=== PATIENT | female | born 1990 | race Two or more races ===

== ENCOUNTER 2024-05-13 19:15 | Emergency (ER) | payer OTHER ==
[~2024-05-13] VITALS: Ht 157.5 cm; Wt 77.1 kg
[~2024-05-13 19:15] MED LIST: BENZ-13 PO; CETI10TA18 PO; DIPH-1062 PO; FAMO40TA7 PO; IBUP-1955 PO; PRED20TA PO
[2024-05-13] MEDS: IV NORMAL SALINE 1000 ML BAG IV ONE (20:20)
[2024-05-13 20:54] LABS: BASOPHILS # (AUTO) 0.1 K/UL (0.0-0.2); BASOPHILS % (AUTO) 0.7 % (0.0-2.0); EOSINOPHILS # (AUTO) 0.2 K/uL (0.0-0.7); EOSINOPHILS % (AUTO) 1.7 % (0.0-7.0); HEMATOCRIT 41.6 % (31.2-41.9); HEMOGLOBIN 13.5 g/dL (10.9-14.3); LYMPHOCYTES % (AUTO) 20.6 % (20.5-51.5); MEAN CORPUSCULAR HEMOGLOBIN 27.3 uug (24.7-32.8); MEAN CORPUSCULAR HGB CONC 32 g/dL (32.3-35.6); MEAN CORPUSCULAR VOLUME 84.4 fL (75.5-95.3); MONOCYTES % (AUTO) 10.1 % (0.0-11.0); NEUTROPHILS # (AUTO) 6.6 K/uL (1.8-8.9); NEUTROPHILS % (AUTO) 66.9 % (38.5-71.5); PLATELET COUNT (AUTO) 277 K/uL (179-408); RED BLOOD CELL COUNT(AUTO) 4.93 MIL/uL (3.63-4.92); RED CELL DISTRIBUTION WIDTH 15.1 % (12.3-17.7); WHITE BLOOD COUNT (AUTO) 9.9 K/uL (3.8-11.8)
[2024-05-13 20:57] LABS: DIFFERENTIAL COMMENT 1
[2024-05-13 21:03] LABS: CARBON DIOXIDE 22 mmol/L (21-32); CHLORIDE 107 mmol/L (98-107); CREATININE 0.8 mg/dL (0.6-1.3); GLUCOSE 89 mg/dL (74-106); POTASSIUM 3.5 mmol/L (3.5-5.1); SODIUM SERUM 140 mmol/L (136-145); UREA NITROGEN, BLOOD 9 mg/dL (7-18)
[2024-05-13 21:04] LABS: AMMONIA 28 umol/L (11-32)
[2024-05-13 21:10] LABS: ETHANOL < 3 MG/DL (0-10)
[2024-05-13 21:11] LABS: ACETAMINOPHEN < 2.0 ug/mL (10-30); ALANINE AMINOTRANSFERASE 33 U/L (14-59); ALBUMIN 3.3 g/dL (3.4-5.0); ALKALINE PHOSPHATASE 76 U/L (50-136); ASPARTATE AMINOTRANSFERASE 8 U/L (15-37); BILIRUBIN,DIRECT 0.1 mg/dL (0.0-0.2); BILIRUBIN,TOTAL 0.3 mg/dL (0.2-1.0)
[2024-05-13 21:22] LABS: *BILIRUBIN,URIN NEGATIVE (NEGATIVE); *CLARITY,URINE CLEAR (CLEAR); *COLOR,URINE YELLOW (YELLOW); *KETONES,URINE NEGATIVE (NEGATIVE); *PROTEIN,URINE NEGATIVE (NEGATIVE); *UROBILINOGEN,URINE 0.2 E.U./dl (NORMAL); LEUKOCYTE ESTERASE ,URINE NEGATIVE (NEGATIVE); NITRITE, URINE NEGATIVE (NEGATIVE); PH,URINE 5.5 (5.0-8.0); UGLUCOSE NEGATIVE (NEGATIVE)
[2024-05-13 21:27] LABS: *BLOOD, URINE NEGATIVE (NEGATIVE)
[2024-05-13 21:28] LABS: *URINE HCG, QUAL NEGATIVE (NEGATIVE)
[2024-05-13 21:36] LABS: *AMPHETAMINE, URINE NEGATIVE (NEGATIVE); *BARBITURATE, URINE NEGATIVE (NEGATIVE); *BENZODIAZEPINE, URINE NEGATIVE (NEGATIVE); *CANNABINOID, URINE NEGATIVE (NEGATIVE); *COCCAINE, URINE NEGATIVE (NEGATIVE); *OPIATE, URINE NEGATIVE (NEGATIVE); *PHENCYCLIDINE SCREEN,URINE NEGATIVE (NEGATIVE); FENTANYL, URINE NEGATIVE (NEGATIVE)
[2024-05-13] MEDS ORDERED: HYDROMORPHONE 1 MG/1 ML DISP.SYRIN ONE (22:02)
[2024-05-13] MEDS ORDERED: diphenhydrAMINE 50 MG/1 ML VIAL ONE (22:02)
[2024-05-13] MEDS: diphenhydrAMINE 50 MG/1 ML VIAL IV ONE (22:10)
[2024-05-13] MEDS: HYDROMORPHONE 1 MG/1 ML DISP.SYRIN IV ONE (22:10)
[2024-05-14] MEDS ORDERED: HYDROMORPHONE 1 MG/1 ML DISP.SYRIN ONE (01:25)
[2024-05-14] MEDS ORDERED: ONDANSETRON 4 MG/2 ML VIAL ONE (01:25)
[2024-05-14] MEDS: ONDANSETRON 4 MG/2 ML VIAL IV ONE (01:30)
[2024-05-14] MEDS: HYDROMORPHONE 1 MG/1 ML DISP.SYRIN IV ONE (01:30)
[2024-05-14 06:40] VITALS: BP_DIAS 101; TEMP 98; O2SAT 97
== END 2024-05-14 06:25 | disposition home or self-care (01) ==
LOC: ER 19:16
DX: R55 Syncope and collapse (principal); G89.29 Other chronic pain; G40.909 Epilepsy, unspecified, not intractable, without status epilepticus; R10.2 Pelvic and perineal pain; J45.909 Unspecified asthma, uncomplicated; E16.2 Hypoglycemia, unspecified; E66.9 Obesity, unspecified; Z68.31 Body mass index [BMI] 31.0-31.9, adult; Z79.1 Long term (current) use of non-steroidal anti-inflammatories (NSAID); Z79.899 Other long term (current) drug therapy; Z88.0 Allergy status to penicillin; Z88.1 Allergy status to other antibiotic agents
CPT/HCPCS: 80076; 80048; 81003; 82140; 84703; 85025; 85730; 87040 ×2; 84484; 36415; 93005; 71045; 70450; 99285; 96361; 96374; 96375 ×2; 83605; 87086; 80299; 80320; 80307; 96376; J1200; J1170 ×2; J7040; J2405; A4606; A4663; G0480